=== PATIENT | female | born 1995 | race Caucasian/White ===

== ENCOUNTER 2022-01-17 16:06 | Outpatient (CLI) | payer MEDICAID, SELFPAY | END 2022-01-17 23:59 | disposition home or self-care (01) | LOC: LAB 16:08 | PROVIDERS: Visit Provider Obstetrics & Gynecology | DX: Z00.00 Encounter for general adult medical examination without abnormal findings (principal) ==

== ENCOUNTER 2022-01-17 16:07 | Outpatient (CLI) | payer OTHER, MEDICAID, SELFPAY ==
[2022-01-17 16:45] LABS: Absolute Lymphocyte Count 2.18 X10^3/uL (0.83-4.51); Absolute Neutrophil Count 6.6 X10^3/uL (2.0-7.7); Basophil# 0.05 X10^3/uL; Basophil% 0.5 % (0-1); Eosinophil# 0.14 X10^3/uL; Eosinophils% 1.5 % (0-5); Hematocrit 33.7 % (37-47); Hemoglobin 11.8 g/dL (12.0-15.0); Lymphocyte # 2.18 X10^3/ul (0.83-4.51); Lymphocyte % 22.9 % (19-41); Mean Corpuscular Hgb 30.9 pg (27.0-32.0); Mean Corpuscular Volume 88.2 fL (81-99); Mean Platelet Vol. 9.8 fl (6.2-12.0); Monocyte# 0.47 X10^3/uL; Monocyte% 4.9 % (0-10); NRBC Flagged by Analyzer 0 % (0-5); Neutrophil # 6.63 X10^3/uL (2.7-7.7); Neutrophil % 69.9 % (47-70); Platelet Count 284 K/mm3 (150-450); RBC Distribution Width CV 12.4 % (11.6-14.6); RBC Distribution Width SD 39.8 fl (35.1-43.9); Red Blood Count 3.82 M/mm3 (4.2-5.4); White Blood Count 9.5 K/mm3 (4.4-11.0)
[2022-01-17 17:16] LABS: NATERA MAILED SPECIMEN
[2022-01-17 18:13] LABS: Amphetamine Urine VISTA NEGATIVE (<1000 ng/mL); Barbiturate Urine VISTA NEGATIVE (< 200 ng/mL); Benzodiazepine Urine VISTA NEGATIVE (< 200 ng/mL); Cocaine Urine VISTA NEGATIVE (< 300 ng/mL); Ecstacy Urine VISTA NEGATIVE (< 500 ng/mL); Methadone Urine VISTA NEGATIVE (< 300 ng/mL); PCP Urine VISTA NEGATIVE (< 25 ng/mL); THC Urine VISTA NEGATIVE (< 50 ng/mL); Vista UDS pH Range 5
[2022-01-18 10:06] LABS: HIV - WCH Non-Reactive (Nonreactive); Hepatitis B Surface Antigen Non-Reactive (Nonreactive); Hepatitis C Antibody Non-Reactive (Nonreactive); Rubella IgG Reactive (Nonreactive); Syphilis Antibodies Non-reactive
[2022-01-22 12:01] LABS: Chlamydia By Nucleic Acid AMP Negative (Negative)
[2022-01-22 12:24] LABS: Gonococcus By Nucleic Acid AMP Negative (Negative)
[2022-01-23 21:34] LABS: HPV Reflexed? NOT INDICATED
== END 2022-01-17 23:59 | disposition home or self-care (01) ==
LOC: LABSPEC 16:09
PROVIDERS: Referring Provider Obstetrics & Gynecology; Visit Provider Obstetrics & Gynecology
DX: Z34.00 Encounter for supervision of normal first pregnancy, unspecified trimester (principal)
CPT/HCPCS: 36415; 80307; 85025; 86703; 86762; 86780; 86803; 86850; 86900; 86901; 87077; 87086; 87088; 87186; 87340; 87491; 87591; 88175; G0145

== ENCOUNTER → 2022-05-09 | Outpatient (CLI) | payer MEDICAID, SELFPAY ==
[2022-05-09 15:57] LABS: Absolute Lymphocyte Count 2.12 X10^3/uL (0.83-4.51); Absolute Neutrophil Count 8.9 X10^3/uL (2.0-7.7); Basophil# 0.05 X10^3/uL; Basophil% 0.4 % (0-1); Eosinophil# 0.55 X10^3/uL; Eosinophils% 4.3 % (0-5); Hemoglobin 9.9 g/dL (12.0-15.0); Lymphocyte # 2.12 X10^3/ul (0.83-4.51); Lymphocyte % 16.6 % (19-41); Mean Corp Hgb Conc 34.1 g/dL (32-36); Mean Corpuscular Hgb 32.2 pg (27.0-32.0); Mean Corpuscular Volume 94.5 fL (81-99); Mean Platelet Vol. 9.4 fl (6.2-12.0); Monocyte# 1.04 X10^3/uL; Monocyte% 8.2 % (0-10); NRBC Flagged by Analyzer 0 % (0-5); Neutrophil % 69.7 % (47-70); Platelet Count 232 K/mm3 (150-450); RBC Distribution Width CV 12.7 % (11.6-14.6); RBC Distribution Width SD 44.1 fl (35.1-43.9); Red Blood Count 3.07 M/mm3 (4.2-5.4); White Blood Count 12.8 K/mm3 (4.4-11.0)
[2022-05-09 16:12] LABS: Glucose Challenge Gest 1H 50g 134 mg/dL (70-140)
== END | disposition home or self-care (01) ==
PROVIDERS: Referring Provider Obstetrics & Gynecology; Visit Provider Obstetrics & Gynecology
DX: O23.40 Unspecified infection of urinary tract in pregnancy, unspecified trimester (principal); Z3A.00 Weeks of gestation of pregnancy not specified
CPT/HCPCS: 36415; 82950; 85025; 87077; 87086; 87088; 87186

== ENCOUNTER → 2022-05-23 | Outpatient (CLI) | payer MEDICAID, SELFPAY ==
[2022-05-23 16:06] LABS: Absolute Lymphocyte Count 2.14 X10^3/uL (0.83-4.51); Absolute Neutrophil Count 10.4 X10^3/uL (2.0-7.7); Basophil# 0.04 X10^3/uL; Basophil% 0.3 % (0-1); Eosinophil# 0.35 X10^3/uL; Eosinophils% 2.5 % (0-5); Hematocrit 28.6 % (37-47); Hemoglobin 9.6 g/dL (12.0-15.0); Lymphocyte # 2.14 X10^3/ul (0.83-4.51); Lymphocyte % 15.2 % (19-41); Mean Corp Hgb Conc 33.6 g/dL (32-36); Mean Corpuscular Hgb 31.8 pg (27.0-32.0); Mean Corpuscular Volume 94.7 fL (81-99); Mean Platelet Vol. 9.7 fl (6.2-12.0); Monocyte# 0.98 X10^3/uL; NRBC Flagged by Analyzer 0 % (0-5); Neutrophil # 10.42 X10^3/uL (2.7-7.7); Neutrophil % 74.1 % (47-70); Platelet Count 228 K/mm3 (150-450); RBC Distribution Width CV 13.1 % (11.6-14.6); Red Blood Count 3.02 M/mm3 (4.2-5.4); White Blood Count 14.1 K/mm3 (4.4-11.0)
== END | disposition home or self-care (01) ==
LOC: PAVLAB 15:48
PROVIDERS: Visit Provider Obstetrics & Gynecology
DX: O99.019 Anemia complicating pregnancy, unspecified trimester (principal); Z3A.00 Weeks of gestation of pregnancy not specified
CPT/HCPCS: 36415; 85025

== ENCOUNTER → 2022-06-07 | Outpatient (CLI) | payer MEDICAID, SELFPAY ==
[2022-06-07 16:51] LABS: Iron 100 ug/dL (50-170); Iron Binding Capacity,Total 410 ug/dL (250-450); PERCENT IRON SATURATION 24.4 % (15.0-55.0)
[2022-06-10 09:23] LABS: Vitamin B12 224 pg/mL (211-911)
== END | disposition home or self-care (01) ==
LOC: LAB 15:42
PROVIDERS: Visit Provider Obstetrics & Gynecology
DX: O99.019 Anemia complicating pregnancy, unspecified trimester (principal); Z3A.00 Weeks of gestation of pregnancy not specified
CPT/HCPCS: 36415; 82607; 82746; 83540; 83550

== ENCOUNTER → 2022-06-20 | Outpatient (CLI) | payer MEDICAID, SELFPAY ==
[2022-06-20 11:56] LABS: Absolute Lymphocyte Count 1.95 X10^3/uL (0.83-4.51); Absolute Neutrophil Count 11.3 X10^3/uL (2.0-7.7); Basophil# 0.06 X10^3/uL; Basophil% 0.4 % (0-1); Eosinophil# 0.45 X10^3/uL; Hematocrit 32.8 % (37-47); Hemoglobin 10.9 g/dL (12.0-15.0); Lymphocyte # 1.95 X10^3/ul (0.83-4.51); Lymphocyte % 12.8 % (19-41); Mean Corp Hgb Conc 33.2 g/dL (32-36); Mean Corpuscular Hgb 31.5 pg (27.0-32.0); Mean Corpuscular Volume 94.8 fL (81-99); Mean Platelet Vol. 9.3 fl (6.2-12.0); Monocyte# 1.21 X10^3/uL; NRBC Flagged by Analyzer 0 % (0-5); Neutrophil # 11.25 X10^3/uL (2.7-7.7); Neutrophil % 73.9 % (47-70); Platelet Count 255 K/mm3 (150-450); RBC Distribution Width CV 13.5 % (11.6-14.6); RBC Distribution Width SD 46.6 fl (35.1-43.9); Red Blood Count 3.46 M/mm3 (4.2-5.4); White Blood Count 15.2 K/mm3 (4.4-11.0)
== END | disposition home or self-care (01) ==
PROVIDERS: Referring Provider Nurse Practitioner Women's Health; Visit Provider Nurse Practitioner Women's Health
DX: O99.019 Anemia complicating pregnancy, unspecified trimester (principal); Z3A.00 Weeks of gestation of pregnancy not specified
CPT/HCPCS: 36415; 85025; 87086; 87088

== ENCOUNTER → 2022-07-05 | Outpatient (CLI) | payer MEDICAID, SELFPAY | END | disposition home or self-care (01) | LOC: LABSPEC 16:59 | PROVIDERS: Visit Provider Obstetrics & Gynecology | DX: Z34.00 Encounter for supervision of normal first pregnancy, unspecified trimester (principal) | CPT/HCPCS: 87081 ==

== ENCOUNTER 2022-07-29 01:35 | Inpatient (IN) | payer MEDICAID, SELFPAY ==
[2022-07-29] VITALS (52 sets, daily range): BP systolic 89–137; BP diastolic 49–82; PULSE 68–114; RESP 12–22; TEMP 36.6–37.7; O2SAT 95–99; BMI 28.1
[2022-07-29 01:32] LABS: ROM Internal Control Test YES-OK TO RESULT pt. (Internal QC)
[2022-07-29 01:33] LABS: ROM Patient Test POSITIVE (Negative)
[2022-07-29] MEDS: Lactated Ringers 1,000 ML 50 ML IV (01:45)
[2022-07-29 02:25] LABS: Absolute Lymphocyte Count 1.93 X10^3/uL (0.83-4.51); Absolute Neutrophil Count 11.7 X10^3/uL (2.0-7.7); Basophil# 0.04 X10^3/uL; Basophil% 0.3 % (0-1); Eosinophil# 0.31 X10^3/uL; Hematocrit 33.2 % (37-47); Lymphocyte # 1.93 X10^3/ul (0.83-4.51); Lymphocyte % 12.2 % (19-41); Mean Corp Hgb Conc 33.1 g/dL (32-36); Mean Corpuscular Hgb 31.3 pg (27.0-32.0); Mean Corpuscular Volume 94.3 fL (81-99); Mean Platelet Vol. 9.7 fl (6.2-12.0); Monocyte# 1.61 X10^3/uL; Monocyte% 10.2 % (0-10); NRBC Flagged by Analyzer 0 % (0-5); Neutrophil # 11.68 X10^3/uL (2.7-7.7); POSITIVE DIFFERENTIAL YES; Platelet Count 223 K/mm3 (150-450); RBC Distribution Width CV 13.6 % (11.6-14.6); RBC Distribution Width SD 46.3 fl (35.1-43.9); Red Blood Count 3.52 M/mm3 (4.2-5.4); White Blood Count 15.8 K/mm3 (4.4-11.0)
[2022-07-29 02:32] LABS: Differential Indicated SCAN CRITERIA MET
[2022-07-29] MEDS: LACTATED RINGERS 500 ML 999 ML IV ×3 (03:04→05:13)
[2022-07-29 03:15] LABS: Differential Comment SCANNED
[2022-07-29] MEDS: fentaNYL-bupivacaine (epidural) 100 ML BAG EPIDURAL ×2 (04:03→08:51)
--- NOTE | 2022-07-29 06:41 | HP.PCM.OB_ITS ---
HPI - General General Date of Admission: 07/29/22 HPI Narrative NILDA DELGADO, is a 27 F who presents IAL 3 cm IAL regular ctx srom clear fluid. Maternal Data Information SAKSHI Calculator 2 Estimated Delivery Date Method Current WG Current Estimate 07/31/22 Ultrasound #1 39w 5d Other Estimates 09/02/22 LMP (Uncertain) 35w 0d PFSH PFSH Medical History History of scarlet fever Home Medications prenat.vits,rosalie,bie-evqw-tmtzu 1 tab PO DAILY 01/07/22 [History Last Taken 07/28/22 07:00] Allergy/AdvReac Type Severity Reaction Status Date / Time No Known Allergies Allergy Verified 07/29/22 01:24 Family History Mother Hypertension Myocardial infarction Grandfather Myocardial infarction Other Breast cancer Hodgkins lymphoma Surgical History S/P tonsillectomy and adenoidectomy Social History adopted: No household members: other details: mom current occupational status: unemployed pets and animals: Yes (avoid litter box) pets and animals: cat(s) and dog(s) Smoking Status: Former smoker Electronic Cigarette Use: with nicotine quit status: considering quitting alcohol intake: current details: not while substance use type: does not use do you feel safe at home: Yes History 1 Elective abortions Hx Para 0 Spontaneous abortions Hx # Term Pregnancies Ectopic pregnancies Hx # Pregnancies Multiple births # of living children Visit Details Expected Delivery Route/Plan Labor Preferences- CB/BF classes: encouraged labor support person: Brenton labor intervention preferences: pain management options preferred: open to epidural if needed cut cord/dad catch: cord : yes PP control planned: discussed discussed possible routes of delivery and associated risks: [] special requests: tub room Plans Covid status: unvaccinated Flu vaccine: unvaccinated Tdap vaccine: given Rhogam: na LARC form signed: yes movement and labor precautions reviewed. Problem list reviewed and updated with the most current plan of care details and appropriate orders placed. Relevant counseling for the gestational age provided. Continue routine care and follow up unless otherwise noted in visit notes/problem list details OB Flowsheet Initial Weight: Not Recorded Date -?-?-?-?-?--?-?-?-?-?-?-?- EGA Weight BP Urine Prot -?-?-?-?-?-?-?-?-?-?-?-?- Glucose FHR FuHt Pres Dilation -?-?-?-?-?-?-?-?-?-?-?-?- Effaced St Visit Note 01/17/22 -?-?-?-?-?-?-?-?-?-?-?-?- 12w 1d 115 lb 8 oz -?-?-?-?-?-?-?-?-?-?-?-?- 160 -?-?-?-?-?-?-?-?-?-?-?-?- JV- CRL not cons istent with LMP. New sakshi given of 07/3102/15/22 -?-?-?-?-?-?-?-?-?-?-?-?- 16w 2d 121 lb 6 oz 120/70 Nega tive -?-?-?-?-?-?-?-?-?-?-?-?- Negative 145 -?-?-?-?-?-?-?-?-?-?-?-?- JV- no complaint s today. Anatomy scan ordered 03/15/22 -?-?-?-?-?-?-?-?-?-?-?-?- 20w 2d 124 lb 6 oz 91/58 Nega tive -?-?-?-?-?-?-?-?-?-?-?-?- Negative 145 -?-?-?-?-?-?-?-?-?-?-?-?- jV- no complaint s today. has anatomy ultrasound scheduled for friday. Baby name is specer 04/12/22 -?-?-?-?-?-?-?-?-?-?-?-?- 24w 2d 132 lb 4 oz 110/58 Nega tive -?-?-?-?-?-?-?-?-?-?-?-?- Negative 135 -?-?-?-?-?-?-?-?-?-?-?-?- SM- no vb lof go od fm no regular ctx 05/09/22 -?-?-?-?-?-?-?-?-?-?-?-?- 28w 1d 128 lb 6 oz 100/60 Nega tive -?-?-?-?-?-?-?-?-?-?-?-?- Negative 141 27 -?-?-?-?-?-?-?-?-?-?-?-?- -No VB, LOF. G ood FM. 28 wk labs, tdap and larc 05/23/22 -?-?-?-?-?-?-?-?-?-?-?-?- 30w 1d 139 lb 100/58 Negative -?-?-?-?-?-?-?-?-?-?-?-?- Negative 140 30 -?-?-?-?-?-?-?-?-?-?-?-?- SM- no vb lof go od fm no regular ctx 06/07/22 -?-?-?-?-?-?-?-?-?-?-?-?- 32w 2d 144 lb 112/68 Negative -?-?-?-?-?-?-?-?-?-?-?-?- Negative 135 32 -?-?-?-?-?-?-?-?-?-?-?-?- SM- no vb lof go od fm no regular ctx iron studies today 06/20/22 -?-?-?-?-?-?-?-?-?-?-?-?- 34w 1d 146 lb 6 oz 110/58 Nega tive -?-?-?-?-?-?-?-?-?-?-?-?- Negative 148 34 -?-?-?-?-?-?-?-?-?-?-?-?- MH-No VB LOF. Go od FM. Still needs appt with hematology. Will arrange. Urine culture today and CBC 07/05/22 -?-?-?-?-?-?-?-?-?-?-?-?- 36w 2d 152 lb 8 oz 96/58 Nega tive -?-?-?-?-?-?-?-?-?-?-?-?- Negative 145 36 Cephalic 2 -?-?-?--?-?-?-?-?-?-?-?-?- 80 -1 JV- labor precautions discussed, gbs collected. no lof, vaginal bleeding, or dec fm. 07/12/22 -?-?-?-?-?-?-?-?-?-?-?-?- 37w 2d 155 lb 104/64 Negative -?-?-?-?-?-?-?-?-?-?-?-?- Negative 140 37 Cephalic 2 -?-?-?-?-?-?-?-?-?-?-?-?- 80 -1 LC-no lof, consistent ctx, or vb. active fm. ready for baby. 07/19/22 -?-?-?-?-?-?-?-?-?-?-?-?- 38w 2d 157 lb 2 oz 116/71 Nega tive -?-?-?-?-?-?-?-?-?-?-?-?- Negative 120 38 Cephalic 2 -?--?-?-?-?-?-?-?-?-?-?-?- 80 -1 JV- no lof , vaginal bleeding, or dec fm. labor precautions discussed. 07/26/22 -?-?-?-?-?-?-?-?-?-?-?-?- 39w 2d 161 lb 92/61 Negative -?-?-?-?-?-?-?-?-?-?-?-?- Negative 115 39 Cephalic 3 -?-?-?-?-?-?-?-?-?-?-?-?- 80 -1 SM- no vb lof good fm no regualr ctx membranes swept 07/29/22 -?-?-?-?-?-?-?-?-?-?-?-?- 39w 5d 164 lb 117/63 123/70 115/68 137/82 122/70 105/73 110/64 110/58 104/63 110/59 109/58 104/52 105/60 89/51 114/56 -?-?-?-?-?-?--?-?-?-?-?-?- -?-?-?-?-?-?-?-?-?-?-?-?- NST FHR Rate Baby A Baseline: 140 Variability:: Moderate Accelerations:: 15 x 15 Decelerations:: None NST Reactive:: Yes FHR Category:: Category I Uterine Activity:: q3-5 ROS Constitutional Constitutional: Reports systems reviewed and no addt'l complaints, except as documented ENT HEENT: Reports systems reviewed and no addt'l complaints, except as documented Cardiovascular Cardiovascular: Reports systems reviewed and no addt'l complaints, except as documented Respiratory/Chest Respiratory/Chest: Reports systems reviewed and no addt'l complaints, except as documented Gastrointestinal Gastrointestinal: Reports systems reviewed and no addt'l complaints, except as documented and nausea; Denies abdominal pain Genitourinary Genitourinary: Reports systems reviewed and no addt'l complaints, except as documented, contractions Details: present and frequency (regular ) and movement Details: present Musculoskeletal Musculoskeletal: Reports systems reviewed and no addt'l complaints, except as documented Integumentary Integumentary: Reports as per HPI Neurologic Neurologic: Reports systems reviewed and no addt'l complaints, except as documented Endocrine Endocrinology: Reports systems reviewed and no addt'l complaints, except as documented Vital Signs Vital Signs Vital Signs: 07/29/22 01:12 07/29/22 01:12 07/29/22 01:12 Temperature Temperature Source Temporal Pulse Rate 80 Blood Pressure 117/63 BP Systolic 117 BP Diastolic 63 Pulse Ox 07/29/22 01:12 07/29/22 01:56 07/29/22 01:56 Temperature 98.8 F Temperature Source Pulse Rate 72 Blood Pressure 123/70 H BP Systolic 123 BP Diastolic 70 Pulse Ox 07/29/22 02:29 07/29/22 01:56 07/29/22 01:56 Temperature 99.0 F Temperature Source Temporal Pulse Rate 68 Blood Pressure BP Systolic BP Diastolic Pulse Ox 07/29/22 03:15 07/29/22 03:15 07/29/22 03:15 Temperature Temperature Source Temporal Pulse Rate 90 Blood Pressure 115/68 BP Systolic 115 BP Diastolic 68 Pulse Ox 07/29/22 03:15 07/29/22 03:45 07/29/22 03:45 Temperature 98.9 F Temperature Source Pulse Rate 90 Blood Pressure BP Systolic BP Diastolic Pulse Ox 99 07/29/22 03:50 07/29/22 03:50 07/29/22 03:52 Temperature Temperature Source Pulse Rate 91 Blood Pressure 137/82 H BP Systolic 137 BP Diastolic 82 Pulse Ox 97 07/29/22 03:52 07/29/22 03:55 07/29/22 03:55 Temperature Temperature Source Pulse Rate 88 90 Blood Pressure BP Systolic BP Diastolic Pulse Ox 98 07/29/22 03:58 07/29/22 03:58 07/29/22 04:00 Temperature Temperature Source Pulse Rate 78 83 Blood Pressure 122/70 H BP Systolic 122 BP Diastolic 70 Pulse Ox 07/29/22 04:00 07/29/22 04:03 07/29/22 04:03 Temperature Temperature Source Pulse Rate 92 Blood Pressure 105/73 BP Systolic 105 BP Diastolic 73 Pulse Ox 99 07/29/22 04:05 07/29/22 04:05 07/29/22 04:10 Temperature Temperature Source Pulse Rate 106 H Blood Pressure 110/64 BP Systolic 110 BP Diastolic 64 Pulse Ox 98 07/29/22 04:10 07/29/22 04:10 07/29/22 04:10 Temperature Temperature Source Pulse Rate 92 88 Blood Pressure BP Systolic BP Diastolic Pulse Ox 99 07/29/22 04:13 07/29/22 04:13 07/29/22 04:15 Temperature Temperature Source Pulse Rate 98 92 Blood Pressure 110/58 L BP Systolic 110 BP Diastolic 58 Pulse Ox 07/29/22 04:15 07/29/22 04:17 07/29/22 04:17 Temperature Temperature Source Pulse Rate 91 Blood Pressure 104/63 BP Systolic 104 BP Diastolic 63 Pulse Ox 98 07/29/22 04:20 07/29/22 04:20 07/29/22 04:23 Temperature Temperature Source Pulse Rate 91 Blood Pressure 110/59 L BP Systolic 110 BP Diastolic 59 Pulse Ox 98 07/29/22 04:23 07/29/22 04:25 07/29/22 04:25 Temperature Temperature Source Pulse Rate 87 87 Blood Pressure BP Systolic BP Diastolic Pulse Ox 98 07/29/22 04:28 07/29/22 04:28 07/29/22 04:36 Temperature Temperature Source Temporal Pulse Rate 89 Blood Pressure 109/58 L BP Systolic 109 BP Diastolic 58 Pulse Ox 07/29/22 04:36 07/29/22 04:45 07/29/22 04:45 Temperature 99.5 F H Temperature Source Pulse Rate 88 Blood Pressure 104/52 L BP Systolic 104 BP Diastolic 52 Pulse Ox 07/29/22 04:54 07/29/22 04:54 07/29/22 04:56 Temperature Temperature Source Temporal Pulse Rate 83 Blood Pressure 105/60 BP Systolic 105 BP Diastolic 60 Pulse Ox 07/29/22 04:55 07/29/22 04:55 07/29/22 04:56 Temperature 99.5 F H Temperature Source Pulse Rate 89 Blood Pressure BP Systolic BP Diastolic Pulse Ox 99 07/29/22 05:13 07/29/22 05:13 07/29/22 05:18 Temperature Temperature Source Pulse Rate 101 H 94 Blood Pressure BP Systolic BP Diastolic Pulse Ox 99 07/29/22 05:18 07/29/22 06:02 07/29/22 06:02 Temperature Temperature Source Pulse Rate 92 Blood Pressure BP Systolic BP Diastolic Pulse Ox 99 99 07/29/22 06:02 07/29/22 06:04 07/29/22 06:04 Temperature Temperature Source Temporal Pulse Rate 84 Blood Pressure 89/51 L BP Systolic 89 BP Diastolic 51 Pulse Ox 07/29/22 06:02 07/29/22 06:29 07/29/22 06:29 Temperature 99.1 F Temperature Source Pulse Rate 96 Blood Pressure 114/56 L BP Systolic 114 BP Diastolic 56 Pulse Ox Weight Weight: 164 lb Body Mass Index (BMI) 28.1 Physical Exam Const alert, oriented x3 and healthy appearing Constitutional Narrative: uncomfortable with contractions HEENT normocephalic and moist oral mucous membranes Head and Scalp: atraumatic Neck full ROM, no lymphadenopathy, supple and thyroid normal General: trachea midline Thyroid: thyroid normal Lymph Lymphatic: no lymphadenopathy noted Chest inspection of chest normal Resp normal respiratory effort Cardio regular rate GI normal to inspection, nondistended, normoactive bowel sounds, soft to palpation and non-tender Inspection: gravid external exam normal Bimanual Exam - Vag & Uterus: uterus non-tender Manual OB Exam: estimated gestational size appropriate, presentation cephalic, dilated, effaced and station Extremity normal to inspection General Extremity: Negative for edema Skin no rashes or lesions noted Neuro deep tendon reflexes 2+ bilaterally Motor Exam: strength 5/5 throughout and clonus absent Psych mental status grossly normal Labs Labs Labs: Blood Type A POSITIVE Antibody Screen NEGATIVE Hct 33.2 % (37-47) L Hgb 11.0 g/dL (12.0-15.0) L Syphilis Total Ab Non-reactive Rubella IgG Antibody Reactive (Nonreactive) Hep Bs Antigen Non-Reactive (Nonreactive) Chlamydia DNA (RHODA) Negative (Negative) Neisseria gonorrhoeae DNA (RHODA) Negative (Negative) HIV 1&2 Antibody Non-Reactive (Nonreactive) Glucose 1 Hr 50 gm 134 mg/dL (70-140) Assessment & Plan (1) Supervision of normal first : COMMENT: PRR SAKSHI:09/02/22 sidney Casas BF:Brenton Unsure LMP (2) : QUALIFIERS: Weeks of gestation: 39 weeks Qualified Code(s): Z3A.39 - 39 weeks gestation of COMMENT: GBS neg. anatomy nl, NIPT low risk, carrier neg. (3) UTI in : COMMENT: Rx sent. Rpt culture with E coli. Macrobid sent and then take daily. Rpt culture:mixed melissa (4) Anemia in preg-unspec: QUALIFIERS: Trimester: third trimester Qualified Code(s): O99.013 - Anemia complicating , third trimester COMMENT: Add FE; still low. Refer hematology. 06/20/22 Hold Hematology consult as Hgb improved. Repeat CBC in 3-4 weeks. (5) SROM (spontaneous rupture of membranes): PLAN: Plan Patient presents IAL, plan expectant management for Pain management: plans epidural. GBS neg Management of any complications: none I have reviewed the [facility] and made any clinically relevant updates.
[2022-07-29] MEDS: Lactated Ringers 1,000 ML 200 ML IV (10:09)
[2022-07-29] MEDS: Sodium Citrate/Citric Acid 30 ML UDC PO (10:39)
[2022-07-29] MEDS: Acetaminophen 500 MG Tablet PO (10:40)
[2022-07-29] MEDS: Cefazolin 2 GM in 0.9% Normal Saline 100 ML IV (10:48)
[2022-07-29 11:20] LABS: Pathologist Review Reviewed
[2022-07-29] MEDS: Oxytocin 15 Units/NS 250ml 15 UNITS/250 ML IV.SOLN 83 UNITS IV (11:50)
--- NOTE | 2022-07-29 13:09 | EX.PCM.OBRPT ---
Assessment & Plan (1) UTI in : COMMENT: Rx sent. Rpt culture with E coli. Macrobid sent and then take daily. Rpt culture:mixed melissa (2) Supervision of normal first : COMMENT: PRR SAKSHI:09/02/22 boy Augusto BF:Brenton Unsure LMP (3) : QUALIFIERS: Weeks of gestation: 39 weeks Qualified Code(s): Z3A.39 - 39 weeks gestation of COMMENT: GBS neg. anatomy nl, NIPT low risk, carrier neg. (4) Cephalopelvic disproportion: (5) delivery delivered: COMMENT: AOD 10 cm pushed 4 hours, SM 40 boy Augusto IAL SROM Maternal Data Information SAKSHI Calculator Estimated Delivery Date Method Current WG Current Estimate 07/31/22 Ultrasound #1 39w 6d Other Estimates 09/02/22 LMP (Uncertain) 35w 1d Final SAKSHI Source: LMP Gestational age: 39 Details Operative Information Date of Procedure: 07/29/22 Pre-Operative Diagnosis: AOD 10 cm pushed 4 hours CPD Post-Operative Diagnosis: same Indications for : Arrrest of Descent Classification: ONI Procedure Type: low transverse road repairer #1: Joann Mota Type of Anesthesia: Epidural Special Medications: none Drain: [place] to straight drain Estimated Blood Loss: 800 Fluids Replaced: crystalloid Findings Description of Procedure: The patient was placed in the dorsal supine position with leftward tilt epidural found to be adequate with supplemental ketamine. pillow had been placed back in the patient room. Pfannenstiel skin incision was made with the scalpel and carried through to the underlying layer of fascia with the scalpel. Fascia was nicked in the midline and the incision extended laterally. The rectus bellies were dissected off superiorly and inferiorly with out complication both sharply and bluntly. The peritoneum was entered digitally. The incision was stretched and a low transverse uterine incision was made with the scalpel. The 's head was delivered atraumatically followed by the anterior and posterior shoulders without complication the rest of the infant delivered. The cord was clamped and cut and the was handed off to awaiting nurse. The placenta was delivered spontaneously immediately following and was noted to be intact and have a three-vessel cord. The uterus was exteriorized cleared of all clots and debris, and the incision was closed in a double layer closure using #1 Monocryl. The ovaries and fallopian tubes were noted to be within normal limits. The uterus was returned to the maternal abdomen and gutters were cleared of all clots and debris. The peritoneum was closed with 3-0 Monocryl in a running fashion. Gloves were changed prior to fascial closure. Fascia was closed with 0 PDS in a running fashion. Subcutaneous tissue was copiously irrigated and the skin was closed with 3-0 Monocryl in a subcuticular fashion. Mepilex dressing was applied without complication. Patient was taken to recovery in stable condition. It was discussed with the patient that based on the clinical information obtained during this encounter, combined with her history, at this time I would recommend cesareans for future deliveries if further pregnancies are desired. Amniotic Membrane Rupture Type: Spontaneous Amniotic Fluid Description: Clear Placental Delivery Description: Spontaneous Placenta Disposition: [facility] Cord Vessel Description: 3 Vessels Cord Entanglement: Around neck x 1, loose Delayed Cord Clamping: Yes Complications Risks of Surgery Discussed w/Patient: Bleeding, Infection, Need for Future C-Sections and Injury to surrounding structure(s) including bowel and bladder Complications: none Admit VTE Documentation VTE Present on Admission: No VTE Mechan Device Prophylaxis: SCD's Procedures Urinary/Genital [id number]: [id number] delivery+ Care([facility])
[2022-07-29] MEDS: Ketorolac 30 MG/ML Syringe IV ×2 (13:20→18:52)
[2022-07-29] MEDS: Lactated Ringers 1,000 ML 100 ML IV (16:15)
[2022-07-29] MEDS: Acetaminophen 500 MG Tablet 1000 MG PO ×2 (17:16→23:32)
[2022-07-29] MEDS: 0.9% Saline Lock 10 ML Syringe IV (18:53)
--- NOTE | 2022-07-29 23:46 | NURSING ---
this RN charted Duramorph checks done under vital signs and shift clinical findings interventions on the work list.
[2022-07-30] MEDS: Ketorolac 30 MG/ML Syringe IV ×2 (00:56→06:55)
[2022-07-30 01:59] VITALS: BP 102/50; PULSE 71; RESP 14; TEMP 36.8; O2SAT 96
[2022-07-30 05:00] VITALS: BP 97/54; PULSE 81; RESP 14; TEMP 36.6; O2SAT 97
[2022-07-30 05:19] LABS: Hematocrit 27.8 % (37-47); Hemoglobin 9.1 g/dL (12.0-15.0); Mean Corp Hgb Conc 32.7 g/dL (32-36); Mean Corpuscular Hgb 30.8 pg (27.0-32.0); Mean Corpuscular Volume 94.2 fL (81-99); Mean Platelet Vol. 9.6 fl (6.2-12.0); Platelet Count 209 K/mm3 (150-450); RBC Distribution Width CV 13.7 % (11.6-14.6); RBC Distribution Width SD 46.4 fl (35.1-43.9); Red Blood Count 2.95 M/mm3 (4.2-5.4); White Blood Count 19.3 K/mm3 (4.4-11.0)
[2022-07-30] MEDS: Acetaminophen 500 MG Tablet 1000 MG PO ×4 (05:20→23:19)
--- NOTE | 2022-07-30 08:06 | PCM.PN.OB ---
Subjective Subjective Patient doing well without complaints. Tolerating PO. Ambulating and voiding without difficulty. Feeding well. Denies chest pain, shortness of breath, calf pain/swelling, fevers, chills, lightheadedness. Objective Data Objective Data Vital Signs: Vital Signs Temp Pulse Resp BP Pulse Ox O2 Del Method 98 F 81 14 97/54 L 97 Room Air 07/30/22 05:00 07/30/22 05:00 07/30/22 05:00 07/30/22 05:00 07/30/22 05:00 07/30/22 05:00 Oxygen Delivery Method Room Air Weight: 164 lb Body Mass Index (BMI) 28.1 Intake & Output: Intake and Output for Last 24 Hours 07/28/22 07/29/22 07/30/22 23:59 23:59 23:59 Intake Total 3488.33 / 3488.33 Output Total 1175 / 1175 700 / 700 Balance 2313.33 / 2313.33 -700 / -700 Lab / Micro Data Result Diagrams: 07/30/22 05:10 Labs: Laboratory Results - last 24 hr 07/29/22 01:45: Diff Path Review Reviewed 07/30/22 05:10: WBC 19.3 H, RBC 2.95 L, Hgb 9.1 L, Hct 27.8 L, MCV 94.2, MCH 30.8, MCHC 32.7, RDW Std Deviation 46.4 H, RDW Coeff of Juan A 13.7, Plt Count 209, MPV 9.6 Micro: Microbiology 07/29/22 01:55 Nasal Secretion SARS-CoV-2 Antigen (Rapid) - Final Physical Exam Const alert and oriented x3 HEENT normocephalic Eyes PERRL Neck full ROM Resp normal respiratory effort GI soft to palpation GI Narrative: FF below U. Dressing dry and intact Palpation: tender other (appropriately) Assessment & Plan (1) delivery delivered: COMMENT: AOD 10 cm pushed 4 hours, SM 40 boy Augusto IAL SROM (2) Cephalopelvic disproportion: (3) Anemia in preg-unspec: QUALIFIERS: Trimester: third trimester Qualified Code(s): O99.013 - Anemia complicating , third trimester COMMENT: Add FE; still low. Refer hematology. 06/20/22 Hold Hematology consult as Hgb improved. Repeat CBC in 3-4 weeks. PLAN: Plan s/p LTCS PPD # 1 1. routine post care 2. breast feeding- support given 3. rh positive 4. rubella immune 5. Repeat CBC today 1300
[2022-07-30 08:40] VITALS: BP 100/54; PULSE 74; RESP 16; TEMP 37; O2SAT 98
[2022-07-30] MEDS: Senna/Docusate Sodium 1 Tablet PO (11:15)
[2022-07-30 11:25] VITALS: BP 100/57; PULSE 81; RESP 16; TEMP 36.8; O2SAT 97
[2022-07-30] MEDS: Naproxen 500 MG Tablet PO ×2 (13:43→22:26)
[2022-07-30 16:00] VITALS: BP 103/55; PULSE 76; RESP 20; TEMP 36.7; O2SAT 99
[2022-07-30 16:27] LABS: Absolute Lymphocyte Count 2.26 X10^3/uL (0.83-4.51); Absolute Neutrophil Count 12.3 X10^3/uL (2.0-7.7); Basophil# 0.06 X10^3/uL; Basophil% 0.4 % (0-1); Eosinophil# 0.23 X10^3/uL; Eosinophils% 1.4 % (0-5); Hematocrit 26.3 % (37-47); Hemoglobin 8.7 g/dL (12.0-15.0); Lymphocyte # 2.26 X10^3/ul (0.83-4.51); Lymphocyte % 13.9 % (19-41); Mean Corp Hgb Conc 33.1 g/dL (32-36); Mean Corpuscular Hgb 31.6 pg (27.0-32.0); Mean Corpuscular Volume 95.6 fL (81-99); Mean Platelet Vol. 9.4 fl (6.2-12.0); Monocyte# 1.22 X10^3/uL; Monocyte% 7.5 % (0-10); NRBC Flagged by Analyzer 0 % (0-5); Neutrophil # 12.34 X10^3/uL (2.7-7.7); Neutrophil % 75.9 % (47-70); Platelet Count 199 K/mm3 (150-450); RBC Distribution Width CV 13.6 % (11.6-14.6); RBC Distribution Width SD 47.8 fl (35.1-43.9); Red Blood Count 2.75 M/mm3 (4.2-5.4); White Blood Count 16.3 K/mm3 (4.4-11.0)
[2022-07-30 20:00] VITALS: BP 98/50; PULSE 81; RESP 16; TEMP 36.7; O2SAT 97
[2022-07-31 02:39] VITALS: BP 103/56; PULSE 70; RESP 16; TEMP 36.6; O2SAT 98
[2022-07-31] MEDS: Acetaminophen 500 MG Tablet 1000 MG PO ×2 (05:21→10:59)
[2022-07-31] MEDS: Naproxen 500 MG Tablet PO (06:37)
[2022-07-31] MEDS: Senna/Docusate Sodium 1 Tablet PO (09:50)
--- NOTE | 2022-07-31 11:34 | PCM.PN.OB ---
Subjective Subjective Patient doing well without complaints. Tolerating PO. Ambulating and voiding without difficulty. Feeding well. Denies chest pain, shortness of breath, calf pain/swelling, fevers, chills, lightheadedness. pain managed with OTC meds Objective Data Objective Data surgical incision c/d/i. Vital Signs: Vital Signs Temp Pulse Resp BP Pulse Ox O2 Del Method 97.8 F 70 16 103/56 L 98 Room Air 07/31/22 02:39 07/31/22 02:39 07/31/22 02:39 07/31/22 02:39 07/31/22 02:39 07/31/22 02:39 Oxygen Delivery Method Room Air Weight: 164 lb Body Mass Index (BMI) 28.1 Intake & Output: Intake and Output for Last 24 Hours 07/29/22 07/30/22 07/31/22 23:59 23:59 23:59 Intake Total 3488.33 / 3488.33 Output Total 1175 / 1175 700 / 700 Balance 2313.33 / 2313.33 -700 / -700 Lab / Micro Data Attestation: I reviewed the patient's lab results. Result Diagrams: 07/30/22 16:15 Labs: Laboratory Results - last 24 hr 07/30/22 16:15: WBC 16.3 H, RBC 2.75 L, Hgb 8.7 L, Hct 26.3 L, MCV 95.6, MCH 31.6, MCHC 33.1, RDW Std Deviation 47.8 H, RDW Coeff of Juan A 13.6, Plt Count 199, MPV 9.4, Immature Gran % (Auto) 0.900, Neut % (Auto) 75.9 H, Lymph % (Auto) 13.9 L, [place] % (Auto) 7.5, Eos % (Auto) 1.4, Baso % (Auto) 0.4, Absolute Neuts (auto) 12.3 H, Absolute Lymphs (auto) 2.26, Nucleated RBC % 0 Micro: Microbiology 07/29/22 01:55 Nasal Secretion SARS-CoV-2 Antigen (Rapid) - Final Physical Exam Const alert and oriented x3 HEENT normocephalic Eyes PERRL Neck full ROM Resp normal respiratory effort GI soft to palpation GI Narrative: FF below U. Dressing dry and intact Palpation: tender other (appropriately) Assessment & Plan (1) care following delivery: PLAN: s/p LTCS PPD # 3 1. routine post care 2. breast feeding- support given 5.stable for d/c home today
[2022-07-31 12:04] VITALS: BP 95/47; PULSE 76; RESP 16; TEMP 36.5
== END 2022-07-31 13:16 | disposition home or self-care (01) | DRG 540 ==
LOC: WPOUT 01:58 → WP 01:58
PROVIDERS: Nurse Practitioner Women's Health; Admitting Provider Obstetrics & Gynecology; Visit Provider Obstetrics & Gynecology
DX: O32.4XX0 Maternal care for high head at term, not applicable or unspecified (principal); O23.43 Unspecified infection of urinary tract in pregnancy, third trimester; N39.0 Urinary tract infection, site not specified; B96.20 Unspecified Escherichia coli [E. coli] as the cause of diseases classified elsewhere; O42.92 Full-term premature rupture of membranes, unspecified as to length of time between rupture and onset of labor; Z3A.39 39 weeks gestation of pregnancy; Z37.0 Single live birth; O33.9 Maternal care for disproportion, unspecified; O99.02 Anemia complicating childbirth; O69.81X0 Labor and delivery complicated by cord around neck, without compression, not applicable or unspecified; Z87.891 Personal history of nicotine dependence; Z28.310 Unvaccinated for COVID-19; Z28.9 Immunization not carried out for unspecified reason
CPT/HCPCS: 59025; 59050; 84112; 85025; 85027; 86850; 86900; 86901; 87811; 99218; 99406; J7120; A4216; G0378; J2405

== ENCOUNTER → 2022-08-14 | Outpatient (CLI) | payer MEDICAID, SELFPAY ==
[2022-08-14 16:25] LABS: Absolute Lymphocyte Count 3.68 X10^3/uL (0.83-4.51); Absolute Neutrophil Count 5.4 X10^3/uL (2.0-7.7); Basophil# 0.14 X10^3/uL; Basophil% 1.3 % (0-1); Eosinophils% 4.8 % (0-5); Hematocrit 40.6 % (37-47); Hemoglobin 13.4 g/dL (12.0-15.0); Lymphocyte # 3.68 X10^3/ul (0.83-4.51); Lymphocyte % 35.1 % (19-41); Mean Corpuscular Hgb 30.9 pg (27.0-32.0); Mean Corpuscular Volume 93.5 fL (81-99); Mean Platelet Vol. 8.6 fl (6.2-12.0); Monocyte# 0.77 X10^3/uL; Monocyte% 7.3 % (0-10); NRBC Flagged by Analyzer 0 % (0-5); Neutrophil # 5.36 X10^3/uL (2.7-7.7); Neutrophil % 51.2 % (47-70); Platelet Count 570 K/mm3 (150-450); RBC Distribution Width CV 12.3 % (11.6-14.6); RBC Distribution Width SD 42.7 fl (35.1-43.9); Red Blood Count 4.34 M/mm3 (4.2-5.4); White Blood Count 10.5 K/mm3 (4.4-11.0)
== END | disposition home or self-care (01) ==
LOC: LAB 16:04
PROVIDERS: Visit Provider Nurse Practitioner Women's Health
DX: O99.019 Anemia complicating pregnancy, unspecified trimester (principal); Z3A.00 Weeks of gestation of pregnancy not specified
CPT/HCPCS: 36415; 85025